=== PATIENT | female | born 1990 | race Caucasian/White ===

== ENCOUNTER 2016-07-09 15:51 | Emergency (ER) | payer MEDICAID ==
[~2016-07-09] VITALS: Ht 154.9 cm; Wt 105.0 kg
[~2016-07-09 15:51] MED LIST: ZOFR8TAB PO
[2016-07-09 15:55] VITALS: BP 140/72; PULSE 82; RESP 20; TEMP 97.6; O2SAT 100
[2016-07-09] MEDS ORDERED: SODIUM CHLOR 0.9% 1000 ML INJ 1,000 ML IV SCH (16:16)
[2016-07-09] MEDS ORDERED: TRAM50TA PO (16:18)
--- NOTE | 2016-07-09 16:18 | PD ---
HPI Chief Complaint: OD/ Ingestion Time Seen by Provider: 16:17 Travel History International Travel<30 days: No Contact w/Intl Traveler<30days: No Traveled to known affect area: No History of Present Illness HPI 25-year-old female with a history of anxiety presents to the emergency department for evaluation of possible accidental overdose. The patient states that at noon, 4 hours ago she accidentally took her 's tramadol. States that they put their medications in a plastic container and she thought she was taking 2 vitamins but she was actually taking 2 tramadol 150 mg extended release tablets. States that since she took these medications and she has felt lightheaded and nauseous. States that she is also feeling very anxious. She denies any vomiting, diarrhea, chest pain, shortness of breath, abdominal pain, difficulty breathing, numbness or tingling, weakness. No other complaints. PFSH Past Medical History Anxiety: Yes Depression: Yes Heart Rhythm Problems: No Chest Pain: Yes Diminished Hearing: No Hypertension: Yes Psychiatric: Yes (PTSD) Reproductive: Yes (CERVICAL PAIN) Immunizations Current: Yes Migraines: Yes Myocardial Infarction: No ?: Not LMP: 05/08/16 : 3 Para: 1 Miscarriage: 0 : 0 Past Surgical History Section: Yes Gynecologic Surgery: Yes () Social History Alcohol Use: No Tobacco Use: No Substance Use: No Allergies-Medications (Allergen,Severity, Reaction): Coded Allergies: No Known Allergies (Unverified , 07/09/16) Reported Meds & Prescriptions Reported Meds & Active Scripts Active Reported Tramadol (Tramadol HCl) 50 Mg Tab 50 Mg PO Q8H PRN Review of Systems Except as stated in HPI: all other systems reviewed are Neg Physical Exam Narrative GENERAL: Well-nourished and well-developed pleasant anxious appearing female patient in no acute distress. SKIN: Warm and dry. HEAD: Normocephalic and atraumatic. EYES: No injection, drainage, or hyphema noted. PERRLA. EOMI. ENT: No nasal drainage noted. Oropharynx is clear. NECK: Supple and the trachea is midline. CARDIOVASCULAR: Regular rate and rhythm. RESPIRATORY: Breath sounds are equal bilaterally with no accessory muscle use, wheezing, rhonchi, or crackles. GASTROINTESTINAL: Abdomen is soft, non-tender, and nondistended. MUSCULOSKELETAL: No obvious deformities, swelling, cyanosis, or ecchymosis is present throughout the upper and lower extremities. Patient has full range of motion without any signs of neurovascular compromise. NEUROLOGICAL: Awake, alert, and oriented. Normal speech and gait. Cranial nerves are grossly intact. Data Data Last Documented VS Vital Signs Date Time Temp Pulse Resp B/P Pulse Ox O2 Delivery O2 Flow Rate FiO2 07/09/16 17:45 98.7 16 18 137/83 Room Air 07/09/16 17:00 100 Orders Basic Metabolic Panel (Bmp) (07/09/16 16:16) Complete Blood Count With Diff (07/09/16 16:16) Iv Access Insert/Monitor (07/09/16 16:16) Ecg Monitoring (07/09/16 16:16) Oximetry (07/09/16 16:16) Sodium Chloride 0.9% Flush (Ns Flush) (07/09/16 16:30) Electrocardiogram (07/09/16 16:16) Sodium Chlor 0.9% 1000 Ml Inj (Ns 1000 M (07/09/16 16:16) Potassium Cl 40 Meq/30 Ml Liq (Kcl 40 Me (07/09/16 20:15) Labs Laboratory Tests Test 07/09/16 16:29 Sodium Level 138 MEQ/L Potassium Level 3.3 MEQ/L Chloride Level 103 MEQ/L Carbon Dioxide Level 24.8 MEQ/L Anion Gap 10 MEQ/L Blood Urea Nitrogen 10 MG/DL Creatinine 0.72 MG/DL Estimat Glomerular Filtration 100 ML/MIN Rate Random Glucose 70 MG/DL Calcium Level 8.7 MG/DL MDM Medical Decision Making Medical Screen Exam Complete: Yes Emergency Medical Condition: Yes Differential Diagnosis Possible overdose versus medication reaction versus dehydration versus anxiety Narrative Course 25-year-old female presents to the emergency department for evaluation after taking 2 tablets of 150 mg tramadol extended release 4.5 hours ago. Patient is afebrile, vital signs are stable. Physical examination is essentially unremarkable. IV access is obtained, labs have been drawn and sent. Nursing staff to call poison control center which recommends supportive care and observation for 4 hours. EKG shows normal sinus rhythm with no acute ST elevations or depressions. BMP shows mild hypokalemia with a potassium of 3.3. Unfortunately the patient's CBC did not result due to a re-collect. The patient is reassessed after being observed for 4 hours and reports complete resolution of symptoms. States that she is feeling well and has no complaints. States that she would like to go home now. The patient denies heavy vaginal bleeding or any bleeding and therefore we'll cancel the CBC. She is stable for discharge. Discussed signs and symptoms and when to return to the emergency department. The patient verbalizes understanding and is in agreement with treatment plan. I discussed the case with my attending physician Dr. Mann who is aware of the patients history, physical examination findings, and treatment plan. Diagnosis Primary Impression: Accidental drug ingestion Qualified Code: T50.901A - Accidental drug ingestion, initial encounter Referrals: Primary Care Physician Patient Instructions: General Instructions Additional Instructions: Follow-up with your Primary Care Physician. Return to the ED for any acute worsening of symptoms. Med/Other Pt SpecificInfo: No Change to Meds Disposition: 01 DISCHARGE HOME Condition: Stable Gala Rhodes Jul 09, 2016 16:18
[2016-07-09] MEDS ORDERED: SODIUM CHLORIDE 0.9% FLUSH 5 ML FLUSH IVF PRN (16:30)
[2016-07-09 17:00] VITALS: O2SAT 100
[2016-07-09 17:15] LABS: BICARBONATE 24.8 MEQ/L (21.0-32.0)
[2016-07-09 17:45] VITALS: BP 137/83; PULSE 16; PULSE 81; RESP 18; TEMP 98.7
[2016-07-09 19:09] LABS: POTASSIUM 3.3 MEQ/L (3.5-5.1)
[2016-07-09] MEDS ORDERED: CEPH-460 PO (19:37)
--- NOTE | 2016-07-09 20:12 | EKG ---
Date Performed: 07/09/2016 Time Performed: 15:55:40 PTAGE: 25 years EKG: Sinus rhythm NORMAL ECG NO SIGNIFICANT CHANGE FROM PRIOR ELECTROCARDIOGRAM. PREVIOUS TRACING : 02/09/2012 16.11 DOCTOR: Tyson Noyola Interpretating Date/Time 07/09/2016 20:11:12
[2016-07-09] MEDS ORDERED: POTASSIUM CL 40 MEQ/30 ML LIQ UDC PO ONE (20:15)
== END 2016-07-09 20:41 | disposition home or self-care (01) ==
LOC: NEPC 15:51
DX: T40.4X1A Poisoning by other synthetic narcotics, accidental (unintentional), initial encounter (principal); I10 Essential (primary) hypertension
CPT/HCPCS: 80048; 93005; 99284; J7030

== ENCOUNTER 2016-07-18 22:39 | Emergency (ER) | payer MEDICAID ==
[~2016-07-18] VITALS: Ht 157.5 cm; Wt 105.0 kg
[~2016-07-18 22:39] MED LIST changes: +TRAM50TA PO; -ZOFR8TAB PO
[2016-07-18 22:42] VITALS: BP 138/81; PULSE 86; RESP 14; TEMP 97.6; O2SAT 99
[2016-07-18 23:44] LABS: AUTOMATED NEUTROPHIL # 6.2 TH/MM3 (1.8-7.7); BASOPHIL # 0.1 TH/MM3 (0-0.2); BASOPHIL % 0.5 % (0.0-2.0); EOSINOPHIL # 0.1 TH/MM3 (0-0.4); EOSINOPHIL % 1.3 % (0.0-4.0); HEMATOCRIT 36.2 % (35.0-46.0); HEMO FLAGS DIFF FINAL; LYMPH % 31.9 % (9.0-44.0); LYMPHOCYTE # 3.4 TH/MM3 (1.0-4.8); MEAN CELL VOLUME 77.4 FL (80.0-100.0); MEAN CORPUSCULAR HEMOGLOBIN 25.1 PG (27.0-34.0); MEAN CORPUSCULAR HGB CONC 32.5 % (32.0-36.0); MONO % 8.3 % (0.0-8.0); PLATELET COUNT 350 TH/MM3 (150-450); RED BLOOD COUNT 4.69 MIL/MM3 (4.00-5.30); RED CELL DISTRIBUTION WIDTH 16.5 % (11.6-17.2); WHITE BLOOD COUNT 10.7 TH/MM3 (4.0-11.0)
[2016-07-18 23:48] LABS: AMPHETAMINE, URINE NEG (NEG); BARBITURATES, URINE NEG (NEG); COCAINE, URINE NEG (NEG)
[2016-07-18 23:51] LABS: ANION GAP 11 MEQ/L (5-15)
[2016-07-18 23:54] LABS: ALKALINE PHOSPHATASE 81 U/L (45-117); ALT (GPT) 17 U/L (10-53); AST (GOT) 11 U/L (15-37); BICARBONATE 25.5 MEQ/L (21.0-32.0); BLOOD UREA NITROGEN 11 MG/DL (7-18); CHLORIDE 104 MEQ/L (98-107); GLOMERULAR FILTRATION RATE 105 ML/MIN (>89); POTASSIUM 3.3 MEQ/L (3.5-5.1); SODIUM (NA) 140 MEQ/L (136-145); TOTAL BILIRUBIN ADULT 0.4 MG/DL (0.2-1.0)
[2016-07-18 23:56] LABS: ACETAMINOPHEN LESS THAN 2.0 MCG/ML (10.0-30.0)
[2016-07-19 02:31] VITALS: BP 119/76; PULSE 70; RESP 18; O2SAT 97
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
[2016-07-19 06:30] VITALS: BP 119/76; PULSE 70; RESP 18; O2SAT 97
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
== END 2016-07-19 11:34 | disposition home or self-care (01) ==
LOC: NEPA 22:39
DX: F43.21 Adjustment disorder with depressed mood (principal)
CPT/HCPCS: 80053; 80307; 80320; 80329; 84703; 85025; 99283; G0480

== ENCOUNTER 2016-09-06 12:32 | Emergency (ER) | payer MEDICAID ==
[~2016-09-06] VITALS: Ht 154.9 cm; Wt 103.0 kg
[2016-09-06 12:55] VITALS: BP 131/76; PULSE 78; RESP 20; TEMP 98.8; O2SAT 100
--- NOTE | 2016-09-06 13:25 | PD ---
HPI Chief Complaint: Allergic/Adverse Reaction Time Seen by Provider: 13:17 Travel History International Travel<30 days: No Contact w/Intl Traveler<30days: No Traveled to known affect area: No History of Present Illness HPI The patient was seen and examined in the presence of the nurse. This patient complains of a reaction to medication. For the first time ever she took a dose of Imitrex for migraine prescribed by her physician. Shortly thereafter she got anxious and dyspneic and had chest tightness. Duration 1 hour. Basically resolved on its own and she feels much improved at this point. She does have history of anxiety. [facility] Past Medical History Anxiety: Yes Depression: Yes Heart Rhythm Problems: No Chest Pain: Yes Diminished Hearing: No Hypertension: Yes Psychiatric: Yes (PTSD) Reproductive: Yes (CERVICAL PAIN) Immunizations Current: Yes Migraines: Yes Myocardial Infarction: No Tetanus Vaccination: < 5 Years Influenza Vaccination: No ?: Not : 3 Para: 2 Miscarriage: 0 : 1 Past Surgical History Section: Yes (2) Gynecologic Surgery: Yes () Social History Alcohol Use: No Tobacco Use: No Substance Use: No Allergies-Medications (Allergen,Severity, Reaction): Coded Allergies: No Known Allergies (Unverified , 09/06/16) Reported Meds & Prescriptions Reported Meds & Active Scripts Active No Active Prescriptions or Reported Medications Review of Systems General / Constitutional: No: Fever HENT: Positive: Headaches Cardiovascular: Positive: Chest Pain or Discomfort Respiratory: No: Cough Physical Exam Narrative GENERAL: Well-nourished, well-developed patient in no apparent distress. SKIN: Warm and dry. HEAD: Atraumatic. Normocephalic. EYES: Pupils equal and round. No scleral icterus. No injection or drainage. ENT: No nasal bleeding or discharge. Mucous membranes pink and moist. NECK: Trachea midline. No JVD. CARDIOVASCULAR: Regular rate and rhythm. No murmur appreciated. RESPIRATORY: No accessory muscle use. Clear to auscultation. Breath sounds equal bilaterally. GASTROINTESTINAL: Abdomen soft, non-tender, nondistended. Hepatic and splenic margins not palpable. MUSCULOSKELETAL: No obvious deformities. No clubbing. No cyanosis. No edema. NEUROLOGICAL: Awake and alert. No obvious cranial nerve deficits. Motor grossly within normal limits. Normal speech. PSYCHIATRIC: Appropriate mood and affect; insight and judgment normal. Data Data Last Documented VS Vital Signs Date Time Temp Pulse Resp B/P Pulse Ox O2 Delivery O2 Flow Rate FiO2 09/06/16 13:35 57 18 137/64 100 Room Air 09/06/16 12:55 98.8 Orders Electrocardiogram (09/06/16 ) MDM Medical Decision Making Medical Screen Exam Complete: Yes Emergency Medical Condition: Yes Medical Record Reviewed: Yes Differential Diagnosis Allergic reaction, medication side effect, anxiety Narrative Course I have reviewed the patient's electronic medical record. Patient's vital signs and examination are normal Her symptoms have resolved I believe she either had anxiety attack or a medication reaction to the Imitrex. She will discuss this with her physician and avoid taking the medication any further As a precaution I reviewed her EKG which is normal other than minimal bradycardia Diagnosis Primary Impression: Medication side effect Qualified Code: T88.7XXA - Medication side effect, initial encounter Additional Impression: Non-cardiac chest pain Additional Instructions: The patient was advised to follow up with their physician and return if they worsen. Med/Other Pt SpecificInfo: Other Scripts No Active Prescriptions or Reported Meds Disposition: 01 DISCHARGE HOME Condition: Stable Austin Underwood MD Sep 06, 2016 13:24
[2016-09-06 13:35] VITALS: BP 137/64; PULSE 57; RESP 18; O2SAT 100
--- NOTE | 2016-09-07 14:34 | EKG ---
Date Performed: 09/06/2016 Time Performed: 13:35:02 PTAGE: 26 years EKG: Sinus bradycardia with sinus arrhythmia Normal ECG except for rate Compared to prior tracin g no significant change PREVIOUS TRACING : 07/09/2016 15.55 DOCTOR: Venu Gregory Interpretating Date/Time 09/07/2016 14:33:11
== END 2016-09-06 13:59 | disposition home or self-care (01) ==
LOC: PHED 12:32
DX: R07.89 Other chest pain (principal); R06.00 Dyspnea, unspecified; T39.8X5A Adverse effect of other nonopioid analgesics and antipyretics, not elsewhere classified, initial encounter; I10 Essential (primary) hypertension; R00.1 Bradycardia, unspecified
CPT/HCPCS: 93005

== ENCOUNTER 2016-10-04 20:54 | Emergency (ER) | payer MEDICAID ==
[~2016-10-04] VITALS: Ht 154.9 cm; Wt 103.0 kg
[2016-10-04 21:33] VITALS: BP 130/81; PULSE 83; RESP 18; TEMP 98.9; O2SAT 96
[2016-10-04] MEDS ORDERED: BUSP5TAB PO (22:05)
[2016-10-04] MEDS ORDERED: [UNRECOGNIZED DRUG - OTHER] (22:05)
[2016-10-04] MEDS ORDERED: SODIUM CHLOR 0.9% 1000 ML INJ 1,000 ML IV ONE (22:14)
[2016-10-04] MEDS ORDERED: SODIUM CHLORIDE 0.9% FLUSH 10 ML FLUSH IVF PRN (22:15)
--- NOTE | 2016-10-04 22:22 | PD ---
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 patient reports that the health clinic placed a Nexplanon implant (68mg etonogestrel implant) on 08/27/16. Patient reports that ever since she has had the implant, she has been having increased vaginal bleeding. Reports that for the past 3 weeks, she has used 3 heavy tampons per day. Patient reports that she called the health clinic and was told that this could be a normal reaction to the implant. Patient reports that "this is not normal to be bleeding for 3 weeks", denies sensation of lightheadedness or dizziness. Patient reports that yesterday, she began to have pain to her left lower abdomen. Reports that she does have history of ovarian cysts in the past. Patient with no fevers or chills, denies lightheadedness or dizziness. Denies chest pain or shortness of breath. Denies vaginal discharge. PFSH Past Medical History Anxiety: Yes Depression: Yes Heart Rhythm Problems: No Chest Pain: Yes Diminished Hearing: No Hypertension: Yes Psychiatric: Yes (PTSD) Reproductive: Yes (CERVICAL PAIN) Immunizations Current: Yes Migraines: Yes Myocardial Infarction: No ?: Not : 3 Para: 2 Miscarriage: 0 : 1 Past Surgical History Section: Yes (2) Gynecologic Surgery: Yes ( C SECTION AND OVARIAN CYSTS) Social History Alcohol Use: No Tobacco Use: No Substance Use: No Allergies-Medications (Allergen,Severity, Reaction): Coded Allergies: No Known Allergies (Unverified , 10/04/16) Reported Meds & Prescriptions Reported Meds & Active Scripts Active Reported [Nexphalon Implant] Buspirone (Buspirone HCl) 5 Mg Tab 5 Mg PO BID Review of Systems General / Constitutional: No: Fever Eyes: No: Visual changes HENT: No: Headaches Cardiovascular: No: Chest Pain or Discomfort Respiratory: No: Shortness of Breath Gastrointestinal: No: Abdominal Pain Genitourinary: Positive: Pelvic Pain, Vaginal Bleeding, No: Dysuria Musculoskeletal: No: Pain Skin: No Rash Neurologic: No: Weakness Psychiatric: No: Depression Endocrine: No: Polydipsia Hematologic/Lymphatic: No: Easy Bruising Physical Exam Narrative GENERAL: mild distress SKIN: Focused skin assessment warm/dry. HEAD: Atraumatic. Normocephalic. EYES: Pupils equal and round. No scleral icterus. No injection or drainage. ENT: No nasal bleeding or discharge. Mucous membranes pink and moist. NECK: Trachea midline. No JVD. CARDIOVASCULAR: Regular rate and rhythm. No murmur appreciated. RESPIRATORY: No accessory muscle use. Clear to auscultation. Breath sounds equal bilaterally. GASTROINTESTINAL: Abdomen soft, tenderness to left lower quadrant with no rebound or guarding on exam. : pelvic exam performed with RN at bedside, patient with closed cervical os, no cmt or adnexal tenderness, small amount of blood in vaginal vault MUSCULOSKELETAL: No obvious deformities. No clubbing. No cyanosis. No edema. NEUROLOGICAL: Awake and alert. No obvious cranial nerve deficits. Motor grossly within normal limits. Normal speech. PSYCHIATRIC: Appropriate mood and affect; insight and judgment normal. Data Data Last Documented VS Vital Signs Date Time Temp Pulse Resp B/P Pulse Ox O2 Delivery O2 Flow Rate FiO2 10/04/16 21:33 98.9 83 18 130/81 96 Orders Beta Hcg (Quant/Titer) (10/04/16 22:14) Complete Blood Count With Diff (10/04/16 22:14) Comprehensive Metabolic Panel (10/04/16 22:14) Gc And Chlamydia Pcr (10/04/16 22:14) Wet Prep Profile (10/04/16 22:14) Urinalysis - C+S If Indicated (10/04/16 22:14) Iv Access Insert/Monitor (10/04/16 22:14) Sodium Chloride 0.9% Flush (Ns Flush) (10/04/16 22:15) Sodium Chlor 0.9% 1000 Ml Inj (Ns 1000 M (10/04/16 22:14) Ed Urine Pregnancytest Poc (10/04/16 22:14) Us Pelvis Comp W Dop Transvag (10/04/16 ) Labs Laboratory Tests Test 10/04/16 10/04/16 23:00 23:05 Urine Color YELLOW Urine Turbidity MOD Urine pH 6.0 Urine Specific [place] 1.004 Urine Protein NEG mg/dL Urine Glucose (UA) NEG mg/dL Urine Ketones NEG mg/dL Urine Occult Blood LARGE Urine Nitrite NEG Urine Bilirubin NEG Urine Leukocyte Esterase NEG Urine RBC 4-9 /hpf Urine WBC 0-2 /hpf Urine Squamous Epithelial 0-5 /hpf Cells Urine Amorphous Sediment FEW Urine Bacteria FEW /hpf Urine Mucus OCC /lpf Microscopic Urinalysis Comment CULT NOT INDICATED Clue Cells (Wet Prep) NONE SEEN Vaginal Trichomonas (Wet Prep) NONE SEEN Vaginal Yeast (Wet Prep) NONE SEEN White Blood Count 11.3 TH/MM3 Red Blood Count 4.97 MIL/MM3 Hemoglobin 12.7 GM/DL Hematocrit 39.0 % Mean Corpuscular Volume 78.6 FL Mean Corpuscular Hemoglobin 25.6 PG Mean Corpuscular Hemoglobin 32.6 % Concent Red Cell Distribution Width 15.6 % Platelet Count 303 TH/MM3 Mean Platelet Volume 9.4 FL Neutrophils (%) (Auto) 51.7 % Lymphocytes (%) (Auto) 37.0 % Monocytes (%) (Auto) 6.4 % Eosinophils (%) (Auto) 2.8 % Basophils (%) (Auto) 2.1 % Neutrophils # (Auto) 5.9 TH/MM3 Lymphocytes # (Auto) 4.2 TH/MM3 Monocytes # (Auto) 0.7 TH/MM3 Eosinophils # (Auto) 0.3 TH/MM3 Basophils # (Auto) 0.2 TH/MM3 CBC Comment DIFF FINAL Differential Comment Sodium Level 140 MEQ/L Potassium Level 3.6 MEQ/L Chloride Level 104 MEQ/L Carbon Dioxide Level 23.6 MEQ/L Anion Gap 12 MEQ/L Blood Urea Nitrogen 10 MG/DL Creatinine 0.64 MG/DL Estimat Glomerular Filtration 114 ML/MIN Rate Random Glucose 80 MG/DL Calcium Level 8.6 MG/DL Total Bilirubin 0.5 MG/DL Aspartate Amino Transf 14 U/L (AST/SGOT) Alanine Aminotransferase 25 U/L (ALT/SGPT) Alkaline Phosphatase 73 U/L Total Protein 8.0 GM/DL Albumin 3.7 GM/DL [facility] Medical Decision Making Medical Screen Exam Complete: Yes Emergency Medical Condition: Yes Interpretation(s) Vital Signs Date Time Temp Pulse Resp B/P Pulse Ox O2 Delivery O2 Flow Rate FiO2 10/04/16 21:33 98.9 83 18 130/81 96 Differential Diagnosis Ovarian cysts, anemia, drug reaction, irregular vaginal bleeding, Narrative Course 26-year-old female presents to emergency room with complaints of irregular vaginal bleeding after she had a Nexplanon implant placed by the department of [facility] on 08/27/16. Patient reports that she has been bleeding for the past 3 weeks, reports that she uses around 3 heavy tampons per day. Patient reports that she has felt dizzy in the past, currently has no dizziness. Patient reports concern as over the past day, she began to have increased pain to the left lower abdomen. Lab work ordered, will obtain pelvic exam. GC ordered. Pelvic ultrasound ordered to evaluate for possible ovarian cysts. HCG Quant ordered to evaluate for possible CBC & BMP Diagram 10/04/16 23:05 patient signed out to care of dr. roman at end of shift Ketty Faust DO Oct 04, 2016 22:22
[2016-10-04 23:19] LABS: BLOOD, URINE LARGE (NEG); GLUCOSE,URINE NEG (NEG); KETONE, URINE NEG (NEG); NITRITE,URINE NEG (NEG)
[2016-10-04 23:19] LABS: AUTOMATED NEUTROPHIL # 5.9 TH/MM3 (1.8-7.7); BASOPHIL # 0.2 TH/MM3 (0-0.2); BASOPHIL % 2.1 % (0.0-2.0); EOSINOPHIL # 0.3 TH/MM3 (0-0.4); EOSINOPHIL % 2.8 % (0.0-4.0); LYMPHOCYTE # 4.2 TH/MM3 (1.0-4.8); MEAN CELL VOLUME 78.6 FL (80.0-100.0); MEAN CORPUSCULAR HEMOGLOBIN 25.6 PG (27.0-34.0); MEAN CORPUSCULAR HGB CONC 32.6 % (32.0-36.0); MONO % 6.4 % (0.0-8.0); NEUT % 51.7 % (16.0-70.0); PLATELET COUNT 303 TH/MM3 (150-450); RED BLOOD COUNT 4.97 MIL/MM3 (4.00-5.30); RED CELL DISTRIBUTION WIDTH 15.6 % (11.6-17.2); WHITE BLOOD COUNT 11.3 TH/MM3 (4.0-11.0)
[2016-10-04 23:25] LABS: MUCUS URINE OCC /lpf (OCC); URINE COLOR YELLOW (YELLW/STRAW)
[2016-10-04 23:26] LABS: SQUAMOUS EPITHELIAL CELL URINE 0-5 /hpf (0-5); WBC, URINE 0-2 /hpf (0-5)
[2016-10-04 23:27] LABS: BACTERIA, URINE FEW /hpf; COMMENT (UR) CULT NOT INDICATED; CULTURE IF INDICATED CULT NOT INDICATED
[2016-10-04 23:28] LABS: HEMO FLAGS DIFF FINAL
[2016-10-04 23:47] LABS: CHLORIDE 104 MEQ/L (98-107); POTASSIUM 3.6 MEQ/L (3.5-5.1); SODIUM (NA) 140 MEQ/L (136-145)
[2016-10-04 23:51] LABS: ANION GAP 12 MEQ/L (5-15); BICARBONATE 23.6 MEQ/L (21.0-32.0)
[2016-10-04 23:52] LABS: BLOOD UREA NITROGEN 10 MG/DL (7-18)
[2016-10-04 23:54] LABS: ALT (GPT) 25 U/L (10-53); AST (GOT) 14 U/L (15-37)
[2016-10-04 23:55] LABS: GLOMERULAR FILTRATION RATE 114 ML/MIN (>89)
[2016-10-04 23:56] LABS: TOTAL BILIRUBIN ADULT 0.5 MG/DL (0.2-1.0)
[2016-10-04 23:57] LABS: ALKALINE PHOSPHATASE 73 U/L (45-117)
[2016-10-04 23:59] LABS: BETA HCG QUANT LESS THAN 1 MIU/ML (0-5)
--- NOTE | 2016-10-05 00:18 | RADHPO ---
EXAM DATE/TIME: 10/04/2016 23:14 [place] COMPARISON: US PELVIS (QUEST PREG/ECTOPIC) W/TRANSVAG, July 01, 2016, 12:00. INDICATIONS : Pelvic pain. Bleeding. MEDICAL HISTORY : Hypertension. Pelvic pain. Vaginal bleeding. SURGICAL HISTORY : section. . Ovarian cysts removal. ENCOUNTER: Subsequent ACUITY: 3 weeks PAIN SCORE: 4/10 LOCATION: Bilateral pelvis MEASUREMENTS: UTERUS: 7.7 x 2.9 x 5.0 cm ENDOMETRIAL STRIPE: 7 mm RIGHT OVARY: 3.3 x 2.3 x 1.7 cm LEFT OVARY: 1.6 x 0.7 x 1.6 cm FINDINGS: UTERUS: The myometrium has homogeneous echotexture without mass. Uterus is retroflexed. RIGHT OVARY: Ovary contains no mass or significant cystic lesion. Blood flow is documented. LEFT OVARY: Ovary contains no mass or significant cystic lesion. Blood flow is documented. MISCELLANEOUS: No free fluid. CONCLUSION: No acute finding is identified to explain the clinical symptoms. Juan C Ruiz MD on October 05, 2016 at 0:15 Board Certified Radiologist. This report was verified electronically.
--- NOTE | 2016-10-05 01:02 | PD ---
Physical Exam Date Seen by Provider: Oct 05, 2016 Time Seen by Provider: 00:44 Narrative Except in transfer of care from Dr. Faust Data Data Last Documented VS Vital Signs Date Time Temp Pulse Resp B/P Pulse Ox O2 Delivery O2 Flow Rate FiO2 10/04/16 21:33 98.9 83 18 130/81 96 Orders Beta Hcg (Quant/Titer) (10/04/16 22:14) Complete Blood Count With Diff (10/04/16 22:14) Comprehensive Metabolic Panel (10/04/16 22:14) Gc And Chlamydia Pcr (10/04/16 22:14) Wet Prep Profile (10/04/16 22:14) Urinalysis - C+S If Indicated (10/04/16 22:14) Iv Access Insert/Monitor (10/04/16 22:14) Sodium Chloride 0.9% Flush (Ns Flush) (10/04/16 22:15) Sodium Chlor 0.9% 1000 Ml Inj (Ns 1000 M (10/04/16 22:14) Ed Urine Pregnancytest Poc (10/04/16 22:14) Us Pelvis Comp W Dop Transvag (10/04/16 ) Labs Laboratory Tests Test 10/04/16 10/04/16 23:00 23:05 Urine Color YELLOW Urine Turbidity MOD Urine pH 6.0 Urine Specific [place] 1.004 Urine Protein NEG mg/dL Urine Glucose (UA) NEG mg/dL Urine Ketones NEG mg/dL Urine Occult Blood LARGE Urine Nitrite NEG Urine Bilirubin NEG Urine Leukocyte Esterase NEG Urine RBC 4-9 /hpf Urine WBC 0-2 /hpf Urine Squamous Epithelial 0-5 /hpf Cells Urine Amorphous Sediment FEW Urine Bacteria FEW /hpf Urine Mucus OCC /lpf Microscopic Urinalysis Comment CULT NOT INDICATED Clue Cells (Wet Prep) NONE SEEN Vaginal Trichomonas (Wet Prep) NONE SEEN Vaginal Yeast (Wet Prep) NONE SEEN White Blood Count 11.3 TH/MM3 Red Blood Count 4.97 MIL/MM3 Hemoglobin 12.7 GM/DL Hematocrit 39.0 % Mean Corpuscular Volume 78.6 FL Mean Corpuscular Hemoglobin 25.6 PG Mean Corpuscular Hemoglobin 32.6 % Concent Red Cell Distribution Width 15.6 % Platelet Count 303 TH/MM3 Mean Platelet Volume 9.4 FL Neutrophils (%) (Auto) 51.7 % Lymphocytes (%) (Auto) 37.0 % Monocytes (%) (Auto) 6.4 % Eosinophils (%) (Auto) 2.8 % Basophils (%) (Auto) 2.1 % Neutrophils # (Auto) 5.9 TH/MM3 Lymphocytes # (Auto) 4.2 TH/MM3 Monocytes # (Auto) 0.7 TH/MM3 Eosinophils # (Auto) 0.3 TH/MM3 Basophils # (Auto) 0.2 TH/MM3 CBC Comment DIFF FINAL Differential Comment Sodium Level 140 MEQ/L Potassium Level 3.6 MEQ/L Chloride Level 104 MEQ/L Carbon Dioxide Level 23.6 MEQ/L Anion Gap 12 MEQ/L Blood Urea Nitrogen 10 MG/DL Creatinine 0.64 MG/DL Estimat Glomerular Filtration 114 ML/MIN Rate Random Glucose 80 MG/DL Calcium Level 8.6 MG/DL Total Bilirubin 0.5 MG/DL Aspartate Amino Transf 14 U/L (AST/SGOT) Alanine Aminotransferase 25 U/L (ALT/SGPT) Alkaline Phosphatase 73 U/L Total Protein 8.0 GM/DL Albumin 3.7 GM/DL Human Chorionic Gonadotropin, LESS THAN 1 Quant MIU/ML [facility] Medical Record Reviewed: Yes Supervised Visit with JOSE ENRIQUE: No Interpretation(s) CBC & BMP Diagram 10/04/16 23:05 Vital Signs Date Time Temp Pulse Resp B/P Pulse Ox O2 Delivery O2 Flow Rate FiO2 10/04/16 21:33 98.9 83 18 130/81 96 poc hcg: negative PELVIS US: FINDINGS: UTERUS: The myometrium has homogeneous echotexture without mass. Uterus is retroflexed. RIGHT OVARY: Ovary contains no mass or significant cystic lesion. Blood flow is documented. LEFT OVARY: Ovary contains no mass or significant cystic lesion. Blood flow is documented. MISCELLANEOUS: No free fluid. CONCLUSION: No acute finding is identified to explain the clinical symptoms. Juan C Ruiz MD on October 05, 2016 at 0:15 Board Certified Radiologist. This report was verified electronically. Differential Diagnosis Please refer to Dr. Faust's dictation Narrative Course Accepted in transfer of care from Dr. Faust for follow-up of pending ultrasound and patient disposition Ultrasound resulted and reveals no acute abnormalities this is been shared with the patient and she is stable for outpatient management and follow-up with her primary care provider Diagnosis Primary Impression: Vaginal bleeding Referrals: Primary Care Physician call for appointment Patient Instructions: General Instructions Additional Instruction: WITH your primary care provider Return to the emergency department for any concerns Increase fluid hydration Med/Other Pt SpecificInfo: No Change to Meds Disposition: 01 DISCHARGE HOME Condition: Stable Hortensia Cody MD Oct 05, 2016 01:02
[2016-10-05 01:25] VITALS: BP 115/77
[2016-10-05 04:00] LABS: CHLAMYDIA PCR NOT DETECTED (NOT DETECT); NEISSERIA PCR NOT DETECTED (NOT DETECT)
== END 2016-10-05 01:28 | disposition home or self-care (01) ==
LOC: PHED 20:54
DX: N93.9 Abnormal uterine and vaginal bleeding, unspecified (principal); R42 Dizziness and giddiness; R10.2 Pelvic and perineal pain; F41.9 Anxiety disorder, unspecified; F32.9 Major depressive disorder, single episode, unspecified; I10 Essential (primary) hypertension; F43.10 Post-traumatic stress disorder, unspecified; Z79.3 Long term (current) use of hormonal contraceptives
CPT/HCPCS: 76830; 76856; 80053; 81001; 84702; 84703; 85025; 87210; 87491; 87591; 93975

== ENCOUNTER 2017-01-28 09:19 | Emergency (ER) | payer MEDICAID ==
[~2017-01-28] VITALS: Ht 154.9 cm; Wt 103.0 kg
[~2017-01-28 09:19] MED LIST changes: +BUSP5TAB PO; -TRAM50TA PO; +[UNRECOGNIZED DRUG - OTHER]
[2017-01-28 09:21] VITALS: BP 136/73; PULSE 90; RESP 20; TEMP 98.3; O2SAT 100
[2017-01-28] MEDS ORDERED: ONDANSETRON HCL 4 MG/2 ML VIAL IVP ONE (11:30)
[2017-01-28] MEDS ORDERED: diphenhydrAMINE HCL 50 MG/ML VIAL IVP ONE (11:30)
[2017-01-28] MEDS ORDERED: KETOROLAC TROMETHAMINE 30 MG/ML (IVP) VIAL IVP ONE (11:30)
[2017-01-28] MEDS ORDERED: SODIUM CHLORIDE 0.9% FLUSH 10 ML FLUSH IVF PRN (11:30)
--- NOTE | 2017-01-28 11:56 | PD ---
HPI Chief Complaint: Headache Time Seen by Provider: 11:10 Travel History International Travel<30 days: No Contact w/Intl Traveler<30days: No Traveled to known affect area: No History of Present Illness HPI Patient is a 26-year-old female presenting to emergency department for evaluation of head pressure, right eye pain, nausea. Patient states she's had a headache and floaters on and off for the last year and a half to 2 years. She states that she feels like it's a cold feeling in her head. She presents today because the symptoms have been consistent for the last 3-4 days. Patient states that her eye feels like it doesn't move at times. She reports an eye exam one year ago and was prescribed glasses which she states she doesn't wear, she needs to read. She reports occasional nausea but no vomiting, fever, chills. PFSH Past Medical History Anxiety: Yes Depression: Yes Heart Rhythm Problems: No Chest Pain: Yes Diminished Hearing: No Hypertension: Yes Psychiatric: Yes (PTSD, BIPOLAR) Immunizations Current: Yes Migraines: Yes Myocardial Infarction: No ?: Not LMP: CONTROL : 3 Para: 2 Miscarriage: 0 : 1 Past Surgical History Section: Yes (2) Gynecologic Surgery: Yes ( C SECTION AND OVARIAN CYSTS) Social History Alcohol Use: Yes (OCCASIONALLY) Tobacco Use: No Substance Use: No Allergies-Medications (Allergen,Severity, Reaction): Coded Allergies: No Known Allergies (Unverified , 10/04/16) Reported Meds & Prescriptions Reported Meds & Active Scripts Active Reported [Nexphalon Implant] Buspirone (Buspirone HCl) 5 Mg Tab 5 Mg PO BID Review of Systems Except as stated in HPI: all other systems reviewed are Neg Eyes: Positive: Other (floaters) HENT: Positive: Headaches, Neck Pain Cardiovascular: No: Chest Pain or Discomfort Respiratory: No: Shortness of Breath Gastrointestinal: Positive: Nausea, No: Vomiting, Diarrhea, Abdominal Pain Genitourinary: No: Dysuria Musculoskeletal: No: Myalgias Neurologic: No: Weakness, Focal Abnormalities, Change in Mentation, Sensory Disturbance Physical Exam Narrative GENERAL: Well-developed, well-nourished, alert female. Resting comfortably in no acute distress. SKIN: Warm and dry. HEAD: Atraumatic. Normocephalic. EYES: Pupils equal and round. No scleral icterus. No injection or drainage. Extraocular movements are intact. ENT: No nasal bleeding or discharge. Mucous membranes pink and moist. NECK: Trachea midline. No JVD. CARDIOVASCULAR: Regular rate and rhythm. RESPIRATORY: No accessory muscle use. Clear to auscultation. Breath sounds equal bilaterally. GASTROINTESTINAL: Abdomen soft, non-tender, nondistended. Hepatic and splenic margins not palpable. MUSCULOSKELETAL: Extremities without clubbing, cyanosis, or edema. No obvious deformities. NEUROLOGICAL: Awake and alert. No obvious cranial nerve deficits. Motor grossly within normal limits. Five out of 5 muscle strength in the arms and legs. Normal speech. PSYCHIATRIC: Appropriate mood and affect; insight and judgment normal. Data Data Last Documented VS Vital Signs Date Time Temp Pulse Resp B/P Pulse Ox O2 Delivery O2 Flow Rate FiO2 01/28/17 09:21 98.3 90 20 136/[address] Brain W/O Iv Contrast(Rout) (01/28/17 ) Ed Urine Pregnancytest Poc (01/28/17 11:22) Iv Access Insert/Monitor (01/28/17 11:22) Sodium Chloride 0.9% Flush (Ns Flush) (01/28/17 11:30) Ketorolac Inj (Toradol Inj) (01/28/17 11:30) Ondansetron Inj (Zofran Inj) (01/28/17 11:30) Diphenhydramine Inj (Benadryl Inj) (01/28/17 11:30) MDM Medical Decision Making Medical Screen Exam Complete: Yes Emergency Medical Condition: Yes Interpretation(s) Vital Signs Date Time Temp Pulse Resp B/P Pulse Ox O2 Delivery O2 Flow Rate FiO2 01/28/17 09:21 98.3 90 20 136/73 100 Room Air Differential Diagnosis Migraine versus tension-type headache versus neuralgia versus other Narrative Course Patient is a 26-year-old female that presented to emergency for evaluation of a headache, floaters. Patient has had the similar symptoms for well over a year. Patient's vital signs are stable, she is neurologically intact. No focal deficits noted. CT scan of the brain was ordered, medications to abort headache ordered. Patient's mother is present and states that she is concerned that we are going to miss something. Patient has a primary care provider which she has not presented to for this problem. [id number] - patient is mother stated that they had to pick up attendant grandchildren from school, they were advised that it could be another hour to 2 hours for the CAT scan to be performed. Patient Noni Mena has decided to leave the hospital against medical advice. This patient has the capacity to refuse care and understands the risks of leaving, including permanent disability and/or , and has had an opportunity to ask questions about her condition. The patient has been informed that she may return for care at any time, and follow up has been arranged/advised. Diagnosis Primary Impression: Left against medical advice Disposition: 07 AGAINST MEDICAL ADVICE Yanet Gutierrez Jan 28, 2017 11:56
== END 2017-01-28 13:43 | disposition left against medical advice (07) ==
LOC: NEPD 09:19
DX: R51 Headache (principal); R11.0 Nausea; H43.399 Other vitreous opacities, unspecified eye; I10 Essential (primary) hypertension; F43.10 Post-traumatic stress disorder, unspecified; F31.9 Bipolar disorder, unspecified; Z79.899 Other long term (current) drug therapy
CPT/HCPCS: 84703; 96374; 96375; 99284; J1200; J1885; J2405

== ENCOUNTER 2017-06-09 14:15 | Emergency (ER) | payer MEDICAID ==
[~2017-06-09] VITALS: Ht 154.9 cm; Wt 111.0 kg
[2017-06-09 14:29] VITALS: BP 143/71; PULSE 83; RESP 16; TEMP 98.6; O2SAT 100
[2017-06-09 15:38] LABS: BLOOD, URINE NEG (NEG); GLUCOSE,URINE NEG (NEG); KETONE, URINE TRACE mg/dL (NEG); NITRITE,URINE NEG (NEG); PH, URINE 6.5 (5.0-8.5)
--- NOTE | 2017-06-09 15:40 | PD ---
HPI Chief Complaint: Abdominal Pain Time Seen by Provider: 15:17 Travel History International Travel<30 days: No Contact w/Intl Traveler<30days: No Traveled to known affect area: No History of Present Illness HPI This 26-year-old female is complaining of. Of epigastric pain which is going on for the past week. Seems to be brought on by eating. She hasn't noted what particular foods make it worse but she is noted that food seems to make it worse. She has not had pain like this before. She has not had fever or chills. She has had 2 C-sections in the past. There is a family history of gallbladder disease. She does not take anti-inflammatory medications. There is no radiation of the pain. Pain seems to be in the midline and is not worse and he decided PFSH Past Medical History Anxiety: Yes Depression: Yes Heart Rhythm Problems: No Chest Pain: Yes Diminished Hearing: No Hypertension: Yes Psychiatric: Yes (PTSD, BIPOLAR) Reproductive: Yes (CERVICAL PAIN) Immunizations Current: Yes Migraines: Yes Myocardial Infarction: No ?: Not LMP: depo : 3 Para: 2 Miscarriage: 0 : 1 Past Surgical History Section: Yes (2) Gynecologic Surgery: Yes ( C SECTION AND OVARIAN CYSTS) Social History Alcohol Use: Yes (OCCASIONALLY) Tobacco Use: No Substance Use: No Allergies-Medications (Allergen,Severity, Reaction): Coded Allergies: No Known Allergies (Unverified Adverse Reaction, Unknown, 06/09/17) Reported Meds & Prescriptions Reported Meds & Active Scripts Active Reported [Nexphalon Implant] Buspirone (Buspirone HCl) 5 Mg Tab 5 Mg PO BID Review of Systems General / Constitutional: No: Fever, Chills Eyes: No: Diploplia, Blurred Vision HENT: No: Headaches, Vertigo Cardiovascular: No: Chest Pain or Discomfort, Palpitations Respiratory: No: Cough, Shortness of Breath Gastrointestinal: Positive: Abdominal Pain, No: Vomiting, Diarrhea Genitourinary: No: Frequency, Dysuria Skin: No Rash, No Itching Neurologic: No: Weakness, Dizziness Endocrine: No: Heat Intolerance Hematologic/Lymphatic: No: Easy Bruising Physical Exam Narrative GENERAL: Well-developed female SKIN: Focused skin assessment warm/dry. HEAD: Atraumatic. Normocephalic. EYES: Pupils equal and round. No scleral icterus. No injection or drainage. ENT: No nasal bleeding or discharge. Mucous membranes pink and moist. NECK: Trachea midline. No JVD. CARDIOVASCULAR: Regular rate and rhythm. No murmur appreciated. RESPIRATORY: No accessory muscle use. Clear to auscultation. Breath sounds equal bilaterally. GASTROINTESTINAL: Abdomen soft, there is some epigastric and right upper quadrant tenderness without guarding guarding or rigidity nondistended. Hepatic and splenic margins not palpable. MUSCULOSKELETAL: No obvious deformities. No clubbing. No cyanosis. No edema. NEUROLOGICAL: Awake and alert. No obvious cranial nerve deficits. Motor grossly within normal limits. Normal speech. PSYCHIATRIC: Appropriate mood and affect; insight and judgment normal. Data Data Last Documented VS Vital Signs Date Time Temp Pulse Resp B/P (MAP) Pulse Ox O2 Delivery O2 Flow Rate FiO2 06/09/17 14:29 98.6 83 16 143/71 (95) 100 Orders Orders Urinalysis - C+S If Indicated (06/09/17 14:21) Ed Urine Pregnancytest Poc (06/09/17 14:21) Complete Blood Count With Diff (06/09/17 15:34) Comprehensive Metabolic Panel (06/09/17 15:34) Lipase (06/09/17 15:34) Us Abdomen Gallbladder (06/09/17 15:34) Labs Laboratory Tests Test 06/09/17 15:31 [facility] Medical Decision Making Medical Screen Exam Complete: Yes Emergency Medical Condition: Yes Medical Record Reviewed: Yes Differential Diagnosis Differential includes gastritis, ulcer disease, cholelithiasis Narrative Course Lab work and ultrasound have been ordered and results are pending Diagnosis Primary Impression: Abdominal pain Lion Oconnor MD Jun 09, 2017 15:40
[2017-06-09 15:42] LABS: URINE COLOR YELLOW (YELLW/STRAW)
[2017-06-09 15:43] LABS: COMMENT (UR) CULT NOT INDICATED; CULTURE IF INDICATED CULT NOT INDICATED; RBC, URINE 0-2 /hpf (0-3); SQUAMOUS EPITHELIAL CELL URINE 0-5 /hpf (0-5); WBC, URINE 0-2 /hpf (0-5)
--- NOTE | 2017-06-09 16:40 | RADRPT ---
EXAM DATE/TIME: 06/09/2017 16:18 [place] COMPARISON: No previous studies available for comparison. INDICATIONS : Right upper quadrant pain. MEDICAL HISTORY : Migraines. HTN. Chest pain. Cervical pain. Ovarian cysts. PTSD. Bipolar disorder. Anxiety. SURGICAL HISTORY : section. ENCOUNTER: Initial ACUITY: 1 week PAIN SCORE: 4/10 LOCATION: Right upper quadrant MEASUREMENTS: LIVER: 17.6 cm length COMMON DUCT: 2 mm RIGHT KIDNEY: 11.2 x 4.9 x 4.5 cm FINDINGS: LIVER: Mild diffuse increased hepatic echogenicity without volume loss or intrahepatic ductal dilatation or focal mass. COMMON DUCT: No intraluminal mass or stone visualized. GALLBLADDER: Contains no stones, demonstrates no wall thickening or pericholecystic fluid. PANCREAS: The visualized portions are within normal limits. RIGHT KIDNEY: No evidence of hydronephrosis, stone, or mass. CONCLUSION: 1. Mild diffusely increased hepatic echogenicity may reflect hepatic steatosis or medical liver disea se. 2. No cholelithiasis or sonographic evidence for acute cholecystitis. Marquise Pizano MD on June 09, 2017 at 16:38 Board Certified Radiologist. This report was verified electronically.
[2017-06-09 16:54] LABS: AUTOMATED NEUTROPHIL # 5.8 TH/MM3 (1.8-7.7); BASOPHIL # 0.1 TH/MM3 (0-0.2); BASOPHIL % 0.7 % (0.0-2.0); EOSINOPHIL # 0.1 TH/MM3 (0-0.4); EOSINOPHIL % 1.5 % (0.0-4.0); HEMATOCRIT 45.4 % (35.0-46.0); HEMO FLAGS DIFF FINAL; LYMPH % 33.3 % (9.0-44.0); LYMPHOCYTE # 3.3 TH/MM3 (1.0-4.8); MEAN CELL VOLUME 82.9 FL (80.0-100.0); MEAN CORPUSCULAR HEMOGLOBIN 26.9 PG (27.0-34.0); MEAN CORPUSCULAR HGB CONC 32.4 % (32.0-36.0); MONO % 5.7 % (0.0-8.0); NEUT % 58.8 % (16.0-70.0); PLATELET COUNT 341 TH/MM3 (150-450); RED BLOOD COUNT 5.48 MIL/MM3 (4.00-5.30); RED CELL DISTRIBUTION WIDTH 12.7 % (11.6-17.2); WHITE BLOOD COUNT 9.9 TH/MM3 (4.0-11.0)
[2017-06-09 17:14] LABS: CHLORIDE 107 MEQ/L (98-107); POTASSIUM 4.3 MEQ/L (3.5-5.1); SODIUM (NA) 136 MEQ/L (136-145)
[2017-06-09 17:18] LABS: ANION GAP 8 MEQ/L (5-15); BICARBONATE 20.7 MEQ/L (21.0-32.0); BLOOD UREA NITROGEN 7 MG/DL (7-18)
[2017-06-09 17:21] LABS: ALT (GPT) 32 U/L (10-53); AST (GOT) 22 U/L (15-37); GLOMERULAR FILTRATION RATE 118 ML/MIN (>89)
[2017-06-09 17:22] LABS: TOTAL BILIRUBIN ADULT 0.4 MG/DL (0.2-1.0)
[2017-06-09 17:24] LABS: ALKALINE PHOSPHATASE 80 U/L (45-117)
[2017-06-09] MEDS ORDERED: ZOFR4TAB PO (17:26)
--- NOTE | 2017-06-09 17:27 | PD ---
Physical Exam Date Seen by Provider: Jun 09, 2017 Narrative Care was assumed from Dr. Tomlin at 4 PM pending ultrasound and lab workup for right upper quadrant abdominal pain. Patient reports a week or so history of some upper abdominal discomfort and with occasionally firm and occasionally loose stools. Her only other associated symptom has been some mild nausea. No fever. No change in the color of her stool. No urinary tract symptoms. She states that she does not take a lot of Tylenol. She does not drink at all. Abdominal exam shows a soft abdomen with right upper quadrant tenderness. No guarding or rebound. Her skin color is normal. There is no jaundice or scleral icterus. Data Data Last Documented VS Vital Signs Date Time Temp Pulse Resp B/P (MAP) Pulse Ox O2 Delivery O2 Flow Rate FiO2 06/09/17 14:29 98.6 83 16 143/71 (95) 100 Orders Orders Urinalysis - C+S If Indicated (06/09/17 14:21) Ed Urine Pregnancytest Poc (06/09/17 14:21) Complete Blood Count With Diff (06/09/17 15:34) Comprehensive Metabolic Panel (06/09/17 15:34) Lipase (06/09/17 15:34) Us Abdomen Gallbladder (06/09/17 15:34) Labs Laboratory Tests Test 06/09/17 15:31 06/09/17 16:40 Urine Color YELLOW Urine Turbidity CLEAR Urine pH 6.5 Urine Specific [place] 1.026 Urine Protein TRACE mg/dL Urine Glucose (UA) NEG mg/dL Urine Ketones TRACE mg/dL Urine Occult Blood NEG Urine Nitrite NEG Urine Bilirubin NEG Urine Leukocyte Esterase NEG Urine RBC 0-2 /hpf Urine WBC 0-2 /hpf Urine Squamous Epithelial Cells 0-5 /hpf Urine Bacteria NONE /hpf Microscopic Urinalysis Comment CULT NOT INDICATED White Blood Count 9.9 TH/MM3 Red Blood Count 5.48 MIL/MM3 Hemoglobin 14.7 GM/DL Hematocrit 45.4 % Mean Corpuscular Volume 82.9 FL Mean Corpuscular Hemoglobin 26.9 PG Mean Corpuscular Hemoglobin Concent 32.4 % Red Cell Distribution Width 12.7 % Platelet Count 341 TH/MM3 Mean Platelet Volume 8.8 FL Neutrophils (%) (Auto) 58.8 % Lymphocytes (%) (Auto) 33.3 % Monocytes (%) (Auto) 5.7 % Eosinophils (%) (Auto) 1.5 % Basophils (%) (Auto) 0.7 % Neutrophils # (Auto) 5.8 TH/MM3 Lymphocytes # (Auto) 3.3 TH/MM3 Monocytes # (Auto) 0.6 TH/MM3 Eosinophils # (Auto) 0.1 TH/MM3 Basophils # (Auto) 0.1 TH/MM3 CBC Comment DIFF FINAL Differential Comment Blood Urea Nitrogen 7 MG/DL Creatinine 0.62 MG/DL Random Glucose 71 MG/DL Albumin 3.7 GM/DL Calcium Level 8.8 MG/DL Aspartate Amino Transf (AST/SGOT) 22 U/L Alanine Aminotransferase (ALT/SGPT) 32 U/L Sodium Level 136 MEQ/L Potassium Level 4.3 MEQ/L Chloride Level 107 MEQ/L Carbon Dioxide Level 20.7 MEQ/L Anion Gap 8 MEQ/L Estimat Glomerular Filtration Rate 118 ML/MIN Lipase 122 U/L MDM Supervised Visit with JOSE ENRIQUE: No Narrative Course Last Impressions Gall Bladder Ultrasound 06/09/17 1534 Signed Impressions: Service Date/Time: Friday, June 09, 2017 16:18 - CONCLUSION: 1. Mild diffusely increased hepatic echogenicity may reflect hepatic steatosis or medical liver disease. 2. No cholelithiasis or sonographic evidence for acute cholecystitis. Marquise Pizano MD CBC & BMP Diagram 06/09/17 16:40 Total Protein 8.6 H, Albumin 3.7, Calcium Level 8.8, Alkaline Phosphatase 80, Aspartate Amino Transf (AST/SGOT) 22, Alanine Aminotransferase (ALT/SGPT) 32, Total Bilirubin 0.4 UA is negative. The etiology of her right upper quadrant pain and the ultrasound abnormality has not been determined. I will have the patient follow-up with her primary care provider for further evaluation. I'll give her a prescription for Zofran for nausea. I will instruct her to take [id number] ibuprofen for pain. Avoid Tylenol products. Diagnosis Primary Impression: Abdominal pain Qualified Codes: R10.11 - Right upper quadrant pain Patient Instructions: Abdominal Pain (ED), General Instructions Additional Instruction: You may take ibuprofen or Aleve for pain. Avoid Tylenol products. Follow-up with your primary care provider for further evaluation. Med/Other Pt SpecificInfo: Prescription(s) given Scripts Ondansetron (Zofran) 4 Mg Tab 4 MG PO Q6HR Y for NAUSEA OR VOMITING, #12 TAB 0 Refills Prov: Betty Renteria MD 06/09/17 Disposition: 01 DISCHARGE HOME Condition: Stable Betty Renteria MD Jun 09, 2017 17:27
== END 2017-06-09 17:39 | disposition home or self-care (01) ==
LOC: PHED 14:15
DX: R10.11 Right upper quadrant pain (principal)
CPT/HCPCS: 76705; 80053; 81001; 83690; 84703; 85025; 99284

== ENCOUNTER 2017-11-26 13:45 | Emergency (ER) | payer MEDICAID ==
[~2017-11-26] VITALS: Ht 157.5 cm; Wt 116.0 kg
[~2017-11-26 13:45] MED LIST changes: +ZOFR4TAB PO
[2017-11-26 14:13] VITALS: BP 143/67; PULSE 85; RESP 16; TEMP 98.5; O2SAT 100
[2017-11-26] MEDS ORDERED: SODIUM CHLOR 0.9% 1000 ML INJ 1,000 ML IV ONE (15:27)
[2017-11-26] MEDS ORDERED: KETOROLAC TROMETHAMINE 30 MG/ML (IVP) VIAL IV PUSH ONE (15:30)
[2017-11-26] MEDS ORDERED: SODIUM CHLORIDE 0.9% FLUSH 10 ML FLUSH IVF PRN (15:30)
--- NOTE | 2017-11-26 15:41 | PD ---
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 Patient states he has been doing fairly well, but in the last 3 days she has had increased vaginal bleeding with cramping and clots which have worsened in the last 24 hours. Patient states her pain is a 6 out of 10 despite taking Percocet. She states she had her period prior to her procedure. She does tend to have heavy periods. She has a history of anemia as well. Patient states she did call her [employer]ACHINE [employer] practitioner who performed the surgery recommended she get checked out here. Patient states she was seen at [facility] 2 days ago, and a CT scan was done and she was treated for urinary tract infection with ciprofloxacin. Patient states no weakness or dizziness. She has no known drug allergies. PFSH Past Medical History Anxiety: Yes Depression: Yes Heart Rhythm Problems: No Chest Pain: Yes Diminished Hearing: No Hypertension: Yes Psychiatric: Yes (PTSD, BIPOLAR) Reproductive: Yes (CERVICAL PAIN) Immunizations Current: Yes Migraines: Yes Myocardial Infarction: No ?: Not : 3 Para: 2 Miscarriage: 0 : 1 Past Surgical History Section: Yes (2) Gynecologic Surgery: Yes ( C SECTION AND OVARIAN CYSTS) Social History Alcohol Use: Yes (OCCASIONALLY) Tobacco Use: No Substance Use: No Allergies-Medications (Allergen,Severity, Reaction): Coded Allergies: No Known Allergies (Unverified Adverse Reaction, Unknown, 06/09/17) Reported Meds & Prescriptions Reported Meds & Active Scripts Active Zofran (Ondansetron HCl) 4 Mg Tab 4 Mg PO Q6HR PRN Reported [Nexphalon Implant] Buspirone (Buspirone HCl) 5 Mg Tab 5 Mg PO BID Review of Systems Except as stated in HPI: all other systems reviewed are Neg General / Constitutional: No: Fever Eyes: No: Visual changes HENT: No: Headaches Cardiovascular: No: Chest Pain or Discomfort Respiratory: No: Shortness of Breath Gastrointestinal: No: Abdominal Pain Genitourinary: Positive: Pelvic Pain, Vaginal Bleeding, No: Urgency, Frequency , Dysuria, Flank Pain, Discharge (See history of present illness) Musculoskeletal: No: Pain Skin: No Rash Neurologic: No: Weakness Psychiatric: No: Depression Endocrine: No: Polydipsia Hematologic/Lymphatic: No: Easy Bruising Physical Exam Narrative GENERAL: Patient is a moderately obese female in no obvious distress. SKIN: Warm and dry. Normal color. Normal turgor. No increase pallor. Patient has well healing laparoscopic incision sites. HEAD: Atraumatic. Normocephalic. EYES: Pupils equal and round. No scleral icterus. No injection or drainage. ENT: No nasal bleeding or discharge. Mucous membranes pink and moist. Pharynx is clear. Airways patent NECK: Trachea midline. No JVD. CARDIOVASCULAR: Regular rate and rhythm. RESPIRATORY: No accessory muscle use. Clear to auscultation. Breath sounds equal bilaterally. GASTROINTESTINAL: Abdomen soft, mild to moderate suprapubic tenderness, nondistended. No guarding or rebound. No CVA tenderness. Hepatic and splenic margins not palpable. MUSCULOSKELETAL: Extremities without clubbing, cyanosis, or edema. No obvious deformities. NEUROLOGICAL: Awake and alert. No obvious cranial nerve deficits. Motor grossly within normal limits. Five out of 5 muscle strength in the arms and legs. Normal speech. PSYCHIATRIC: Appropriate mood and affect; insight and judgment normal. Data Data Last Documented VS Vital Signs Date Time Temp Pulse Resp B/P (MAP) Pulse Ox O2 Delivery O2 Flow Rate FiO2 11/26/17 14:13 98.5 85 16 143/67 (92) 100 Orders Orders Urinalysis - C+S If Indicated (11/26/17 15:07) Ed Urine Pregnancytest Poc (11/26/17 15:07) Complete Blood Count With Diff (11/26/17 15:27) Comprehensive Metabolic Panel (11/26/17 15:27) Us Pelvis Comp Clipper Machine Operator/Non-Preg (11/26/17 ) Iv Access Insert/Monitor (11/26/17 15:27) Ecg Monitoring (11/26/17 15:27) Sodium Chloride 0.9% Flush (Ns Flush) (11/26/17 15:30) Sodium Chlor 0.9% 1000 Ml Inj (Ns 1000 M (11/26/17 15:27) Ketorolac Inj (Toradol Inj) (11/26/17 15:30) Ibuprofen (Motrin) (5/24/18 18:30) Medroxyprogesterone Acetate (Provera) (11/26/17 18:30) Labs Laboratory Tests Test 11/26/17 15:55 White Blood Count 12.4 TH/MM3 Red Blood Count 4.76 MIL/MM3 Hemoglobin 13.4 GM/DL Hematocrit 40.9 % Mean Corpuscular Volume 85.9 FL Mean Corpuscular Hemoglobin 28.2 PG Mean Corpuscular Hemoglobin Concent 32.8 % Red Cell Distribution Width 13.4 % Platelet Count 243 TH/MM3 Mean Platelet Volume 8.8 FL Neutrophils (%) (Auto) 61.8 % Lymphocytes (%) (Auto) 28.1 % Monocytes (%) (Auto) 7.9 % Eosinophils (%) (Auto) 1.4 % Basophils (%) (Auto) 0.8 % Neutrophils # (Auto) 7.7 TH/MM3 Lymphocytes # (Auto) 3.5 TH/MM3 Monocytes # (Auto) 1.0 TH/MM3 Eosinophils # (Auto) 0.2 TH/MM3 Basophils # (Auto) 0.1 TH/MM3 CBC Comment DIFF FINAL Differential Comment Urine Color YELLOW Urine Turbidity HAZY Urine pH 6.0 Urine Specific [place] 1.043 Urine Protein 30 mg/dL Urine Glucose (UA) NEG mg/dL Urine Ketones TRACE mg/dL Urine Occult Blood MOD Urine Nitrite NEG Urine Bilirubin NEG Urine Urobilinogen 4.0 MG/DL Urine Leukocyte Esterase NEG Urine RBC 78 /hpf Urine WBC 2 /hpf Urine Squamous Epithelial Cells 2 /hpf Urine Mucus FEW /lpf Microscopic Urinalysis Comment CULT NOT INDICATED Blood Urea Nitrogen 9 MG/DL Creatinine 0.76 MG/DL Random Glucose 77 MG/DL Total Protein 7.8 GM/DL Albumin 3.6 GM/DL Calcium Level 8.5 MG/DL Alkaline Phosphatase 96 U/L Aspartate Amino Transf (AST/SGOT) 26 U/L Alanine Aminotransferase (ALT/SGPT) 27 U/L Total Bilirubin 0.4 MG/DL Sodium Level 138 MEQ/L Potassium Level 4.2 MEQ/L Chloride Level 105 MEQ/L Carbon Dioxide Level 23.8 MEQ/L Anion Gap 9 MEQ/L Estimat Glomerular Filtration Rate 93 ML/MIN MDM Medical Decision Making Medical Screen Exam Complete: Yes Emergency Medical Condition: Yes Differential Diagnosis Irregular uterine bleeding. Status post laparoscopic tubes tied. Vaginal bleeding Narrative Course Patient appears medically stable at time of exam. Labs ordered including CBC, CMP, urinalysis. IV access is obtained the patient is given 30 mg Toradol IV. Pelvic ultrasound is ordered. Patient has mild leukocytosis of 12.4. Otherwise normal CBC. Hemoglobin 13.4, hematocrit is 40.9 Chemistries are normal. Urinalysis shows no signs of infection. Pelvic ultrasound shows: CONCLUSION: 1. Limited transabdominal imaging due to bowel gas and cephalad position of the ovaries. 2. Heterogeneously echogenic endometrium which may reflect blood products. Clinical correlation is recommended. This can be further evaluated with hysterosonography as indicated. 3. Echogenic fluid in the cul-de-sac consistent with blood products Call was placed to Dr. Turcios, the on-call VAMP STRAP IRONER, who recommended ibuprofen 600 mg 4 times daily for the next 10 days. He also recommended 5 mg medroxyprogesterone daily at the same time every day, for 10 days. Patient should expect the bleeding to improve, and at the end of 10 days she will have her regular period. Patient can return to emergency department with worsening symptoms as needed. Diagnosis Primary Impression: Vaginal bleeding Patient Instructions: General Instructions Additional Instructions: Patient has mild leukocytosis of 12.4. Otherwise normal CBC. Hemoglobin 13.4, hematocrit is 40.9 Chemistries are normal. Urinalysis shows no signs of infection. Pelvic ultrasound shows: CONCLUSION: 1. Limited transabdominal imaging due to bowel gas and cephalad position of the ovaries. 2. Heterogeneously echogenic endometrium which may reflect blood products. Clinical correlation is recommended. This can be further evaluated with hysterosonography as indicated. 3. Echogenic fluid in the cul-de-sac consistent with blood products Call was placed to Dr. Turcios, the on-call VAMP [employer] IR[employer]ER, who recommended ibuprofen 600 mg 4 times daily for the next 10 days. He also recommended 5 mg medroxyprogesterone daily at the same time every day, for 10 days. Patient should expect the bleeding to improve, and at the end of 10 days she will have her regular period. Patient can return to emergency department with worsening symptoms as needed. Med/Other Pt SpecificInfo: Prescription(s) given Disposition: 01 DISCHARGE HOME Condition: Stable Gregorio Monroy November 26, 2017 15:41
[2017-11-26 16:11] LABS: AUTOMATED NEUTROPHIL # 7.7 TH/MM3 (1.8-7.7); BASOPHIL # 0.1 TH/MM3 (0-0.2); BASOPHIL % 0.8 % (0.0-2.0); EOSINOPHIL # 0.2 TH/MM3 (0-0.4); EOSINOPHIL % 1.4 % (0.0-4.0); HEMATOCRIT 40.9 % (35.0-46.0); HEMOGLOBIN 13.4 GM/DL (11.6-15.3); LYMPH % 28.1 % (9.0-44.0); LYMPHOCYTE # 3.5 TH/MM3 (1.0-4.8); MEAN CELL VOLUME 85.9 FL (80.0-100.0); MEAN CORPUSCULAR HEMOGLOBIN 28.2 PG (27.0-34.0); MEAN CORPUSCULAR HGB CONC 32.8 % (32.0-36.0); MEAN PLATELET VOLUME 8.8 FL (7.0-11.0); MONO % 7.9 % (0.0-8.0); NEUT % 61.8 % (16.0-70.0); PLATELET COUNT 243 TH/MM3 (150-450); RED BLOOD COUNT 4.76 MIL/MM3 (4.00-5.30); RED CELL DISTRIBUTION WIDTH 13.4 % (11.6-17.2); WHITE BLOOD COUNT 12.4 TH/MM3 (4.0-11.0)
[2017-11-26 16:17] LABS: BILIRUBIN, URINE NEG (NEG); BLOOD, URINE MOD (NEG); GLUCOSE,URINE NEG (NEG); KETONE, URINE TRACE mg/dL (NEG); MUCUS URINE FEW /lpf (OCC); NITRITE,URINE NEG (NEG); SQUAMOUS EPITHELIAL CELL URINE 2 /hpf (0-5); URINE COLOR YELLOW (YELLW/STRAW); URINE LEUKOCYTE ESTERASE NEG (NEG)
[2017-11-26 16:27] LABS: ALKALINE PHOSPHATASE 96 U/L (45-117); TOTAL BILIRUBIN ADULT 0.4 MG/DL (0.2-1.0); TOTAL PROTEIN 7.8 GM/DL (6.4-8.2)
[2017-11-26 16:28] LABS: ALBUMIN 3.6 GM/DL (3.4-5.0); ALT (GPT) 27 U/L (10-53); AST (GOT) 26 U/L (15-37); BICARBONATE 23.8 MEQ/L (21.0-32.0); BLOOD UREA NITROGEN 9 MG/DL (7-18); CALCIUM 8.5 MG/DL (8.5-10.1); CHLORIDE 105 MEQ/L (98-107); CREATININE 0.76 MG/DL (0.50-1.00); GLOMERULAR FILTRATION RATE 93 ML/MIN (>89); GLUCOSE,RANDOM 77 MG/DL (74-106); SODIUM (NA) 138 MEQ/L (136-145)
--- NOTE | 2017-11-26 17:59 | RADRPT ---
EXAM DATE: 11/26/2017 5:40 PM EDT AGE/SEX: 27 years / Female INDICATIONS: Abnormal bleeding after tubal ligation on 11/16/17. CLINICAL DATA: This is the patient's initial encounter. Patient reports that signs and symptoms have been present for 1 week and indicates a pain score of 6/10. MEDICAL/SURGICAL HISTORY: Hypertension. Migraines. Ovarian cysts. Post traumatic stress disorde r. Bipolar disorder. section. Tubal ligation. COMPARISON: [facility], US PELVIS,COMP,W DOPLR, TRANS VAG, 10/04/2016. . No external comparison. MEASUREMENTS: Uterus:__11.6 x 5.1 x 3.7 cm Endometrial Stripe:__15 mm Right Ovary:__ 4.9 x 3.4 x 2.6 cm Left Ovary:__ 2.2 x 2.5 x 1.5 cm FINDINGS: Uterus: The myometrium has homogeneous echotexture without mass. Prominent origin is the echogenic endometrium. Right Ovary: Ovary contains no mass or significant cystic lesion. Blood flow is documented. Left Ovary: Ovary contains no mass or significant cystic lesion. Blood flow is documented. Other: Echogenic fluid is noted in the cul-de-sac. CONCLUSION: 1. Limited transabdominal imaging due to bowel gas and cephalad position of the ovaries. 2. Heterogeneously echogenic endometrium which may reflect blood products. Clinical correlation is r ecommended. This can be further evaluated with hysterosonography as indicated. 3. Echogenic fluid in the cul-de-sac consistent with blood products. Electronically signed by: Marquise Pizano MD 11/26/2017 5:57 PM EDT
[2017-11-26] MEDS ORDERED: IBUP-232 PO (18:20)
[2017-11-26] MEDS ORDERED: MEDR5TAB3 PO (18:20)
[2017-11-26] MEDS ORDERED: IBUPROFEN 600 MG TAB PO ONE (18:30)
[2017-11-26] MEDS ORDERED: ZOFR4TAB PO (18:33)
== END 2017-11-26 19:05 | disposition home or self-care (01) ==
LOC: NEPD 13:45
DX: N93.9 Abnormal uterine and vaginal bleeding, unspecified (principal); I10 Essential (primary) hypertension; F43.10 Post-traumatic stress disorder, unspecified; F41.8 Other specified anxiety disorders
CPT/HCPCS: 76856; 80053; 81001; 84703; 85025; 96361; 96374; 99284; J1885; J7030